=== PATIENT | female | born 1950 | race Caucasian/White ===

== ENCOUNTER 2018-09-22 13:33 | Inpatient (IN) | payer SELFPAY ==
[2018-09-22] MEDS ORDERED: Sodium Chloride 0.9% 1,000 ML IV SCH (14:00)
--- NOTE | 2018-09-22 14:07 | C.PDOC ---
History Of Present Illness 68 year female presents to ED s/p passing out. Daughter reports that they were about to have lunch when she passed out and fell to the ground. Patient's daughter reports that she had mild tremors while unconscious and that her eyes w ere wide open and teeth were clenched. This episode lasted for 1 minute. Patient also experienced urinary incontinence and had an episode of vomiting and watery diarrhea when she woke up. She has a history of diabetes. Patient states that she felt fine the last time she ate at breakfast and reports no symptoms concerning her stomach from earlier today. Patient denies fever, chills and urinary symptoms. Time Seen by Provider: 09/22/18 13:35 Chief Complaint (Nursing): GI Problem History Per: Patient, Family History/Exam Limitations: no limitations Onset/Duration Of Symptoms: Hrs Current Symptoms Are (Timing): Still Present Activity At Onset Of Symptoms: Walking Seizure Or Post-ictal Symptoms: Incontinent Of Urine Past Medical History Reviewed: Historical Data, Nursing Documentation, Vital Signs Vital Signs: Last Vital Signs Temp 98.3 F 09/22/18 13:35 Pulse 105 H 09/22/18 13:35 Resp 20 09/22/18 13:35 BP 157/87 H 09/22/18 13:35 Pulse Ox 98 09/22/18 13:35 - Medical History PMH: Diabetes, Hypercholesterolemia Surgical History: No Surg Hx Family History: States: Unknown Family Hx - Social History Hx Alcohol Use: No Hx Substance Use: No - Immunization History Hx Tetanus Toxoid Vaccination: No Hx Influenza Vaccination: No Hx Pneumococcal Vaccination: No Review Of Systems Constitutional: Negative for: Fever, Chills, Weakness Eyes: Negative for: Vision Change Cardiovascular: Negative for: Chest Pain Respiratory: Negative for: Shortness of Breath Gastrointestinal: Positive for: Vomiting. Negative for: Nausea, Diarrhea Genitourinary: Positive for: Dysuria. Negative for: Incontinence Neurological: Negative for: Weakness, Numbness, Dizziness Physical Exam - Physical Exam Appears: Non-toxic, No Acute Distress, Other (tired appearing) Skin: Normal Color, Warm, Dry Head: Atraumatic, Normacephalic Eye(s): bilateral: PERRL, EOMI Nose: Normal Oral Mucosa: Other (tacky mucous membrane) Lips: Normal Appearing Throat: No Erythema Neck: Normal ROM, Trachea Midline Lymphatic: No Adenopathy Chest: Symmetrical, No Tenderness Cardiovascular: Rhythm Regular, No Murmur Respiratory: Normal Breath Sounds, No Wheezing Gastrointestinal/Abdominal: Soft, No Tenderness, No Mass, No Guarding, No Rebound Back: Normal Inspection, No Decreased ROM Extremity: Normal ROM, No Deformity Neurological/Psych: Oriented x3, Normal Motor, Normal Sensation ED Course And Treatment - Laboratory Results Result Diagrams: 09/22/18 14:19 09/22/18 14:19 O2 Sat by Pulse Oximetry: 98 (RA) - Other Rad CXR X-Ray: Interpreted by Me, Viewed By Me Interpretation: Accession No. : [id number]. Patient Name / ID : DOYLE ROWLAND / [id number]. Exam Date : 09/22/2018 13:59:45 ( Approved ). Study Comment : Sex / Age : F / 68Y. Creator : allen rodriguez. Dictator : Mirian Moreno. Vocational Education Professional : Plastic Finisher : Mirian Moreno. Approver2 : Report Date : 09/22/2018 14:03:39. My Comment : . Date of service: 09/22/2018. HISTORY: weakness. COMPARISON: No prior. FINDINGS: LUNGS: No active pulmonary disease. PLEURA: No significant pleural effusion identified, no pneumothorax apparent. CARDIOVASCULAR: No aortic atherosclerotic calcification present. Mild cardiomegaly. No pulmonary vascular congestion. OSSEOUS STRUCTURES: No significant abnormalities. VISUALIZED UPPER ABDOMEN: Normal. OTHER FINDINGS: None. IMPRESSION: No acute pulmonary pathology. Mild cardiomegaly. - CT Scan/US CTA Chest Other Rad Studies (CT/US): Interpreted By Me, Read By Radiologist CT/US Interpretation: Accession No. : [id number]. Patient Name / ID : DOYLE Russell / [id number]. Exam Date : 09/22/2018 16:27:36 ( Approved ). Study Comment : Sex / Age : F / 68Y. Creator : Aditi Mueller. Dictator : Keisha Alvarado MD. Vocational Education Professional : Plastic Finisher : Keisha Alvarado MD. Approver2 : Report Date : 09/22/2018 16:53:13. My Comment : . This report is currently processing and HAS NOT BEEN OFFICIALLY SIGNED BY THE PHYSICIAN - ESTIMATED TIME OF APPROVAL IS 09/22/2018 17:17. Date of service: 09/22/2018. CTA chest PE protocol. Indication: SYNCOPE elevated trop r/o PE. Technique: Contiguous axial images were obtained through the chest with intravenous contrast enhancement. Sagittal and coronal reconstructions were generated and reviewed. This CT exam was performed using 1 or more of the following dose reduction techniques: Automated exposure control, adjustment of the MAA and/or kV according to patient size, and/or use of iterative reconstruction technique. IV contrast: 100 mL Visipaque 320 IV. . Radiation dose (DLP): 392.02 MGy-cm. Comparison: Chest x-ray performed 09/22/18. Findings: Visualized portions of the inferior thyroid gland demonstrates 11 mm right lower pole hypodense nodule. The mediastinal and hilar vascular structures appear within normal limits. The heart appears within normal limits of size. Coronary artery calcifications. No large central or segmental pulmonary embolus evident. No focal consolidation. No pleural effusion. No pneumothorax. 7 mm right middle lobe pulmonary nodule (series 3, image 97). 4 mm right middle lobe subpleural pulmonary nodule (image 124). Small hiatal hernia/distal esophageal wall thickening. Limited visualized portions of the upper abdomen appear grossly unremarkable. Mild degenerative changes of the spine,. Impression: No large central or segmental pulmonary embolus evident. No focal consolidation. No pleural effusion. No pneumothorax. 7 mm right middle lobe pulmonary nodule. 4 mm right middle lobe subpleural pulmonary nodule. Correlate clinically and recommend [address] follow-up. 11 mm right lower pole hypodense thyroid nodule. Suggest further evaluation with ultrasound. Head CT Other Rad Studies (CT/US): Interpreted By Me, Read By Radiologist CT/US Interpretation: Creator : Aditi Mueller. Dictator : Keisha Alvarado MD. Vocational Education Professional : Plastic Finisher : Keisha Alvarado MD. Approver2 : Report Date : 09/22/2018 16:42:49. My Comment : . Date of service: 09/22/2018. PROCEDURE: CT HEAD WITHOUT CONTRAST. HISTORY: loss of consciousness syncope v seizure. COMPARISON: None available. TECHNIQUE: Axial computed tomography images were obtained through the head/brain without intravenous contrast. Radiation dose: Total exam DLP = 1010.5 mGy-cm. This CT exam was performed using one or more of the following dose reduction techniques: Automated exposure control, adjustment of the mA and/or kV according to patient size, and/or use of iterative reconstruction technique. FINDINGS: Streak artifact from patient's left earring limits evaluation. HEMORRHAGE: No intracranial hemorrhage. BRAIN: No mass effect or edema. Dense intracranial atherosclerosis. Mild scattered white matter hypodensities, which are nonspecific, but often seen with chronic microvascular ischemic disease. Please note that MRI with diffusion imaging is more sensitive in the detection of acute ischemic event. VENTRICLES: No hydrocephalus. CALVARIUM: Unremarkable. PARANASAL SINUSES: Unremarkable as visualized. No significant inflammatory changes. MASTOID AIR CELLS: Unremarkable as visualized. No inflammatory changes. OTHER FINDINGS: None. IMPRESSION: No acute intracranial pathology identified. Critical Care Time - Critical Care Note Total Time (in mins): 45 Documented critical care: time excludes all time spent performing seperately billable procedures. Medical Decision Making Medical Decision Making: Impression: loss of consciousness Differential Diagnosis: syncope,seizure,dehydration, sepsis,gastroenteritis, electrolyte abnormality, and cardiac arrhythmia. Plan: Labs ordered with UA for patient. CXR and Head CT ordered for patient. Patient given IV fluids. EKG Sinus tach with LBBB, no old for comparison. 1500 Labs demonstrated elevated troponin and low magnesium. Magnesium repletion ordered. DW Dr Tovar who came to ER and evaluated pt and advised hospitalization, ICU consult, and PE study. Repeat EKG unchanged. 1600 DW family findings and plan of care. Pt continues to deny any chest pain or shortness of breath [facility] Referral Coordinator who evaluated pt in ER and advised placement in telemetry floor [facility] Hospitalist for admission Disposition - Disposition Disposition: HOSPITALIZED Disposition Time: 16:00 Condition: GUARDED - POA Present On Arrival: Falls Or Trauma - Clinical Impression Clinical Impression: NSTEMI (non-ST elevated myocardial infarction), Hypomagnesemia, Syncope - Scribe Statement The provider has reviewed the documentation as recorded by the Scribe (Melany Glover) All medical record entries made by the Scribe were at my direction and personally dictated by me. I have reviewed the chart and agree that the record accurately reflects my personal performance of the history, physical exam, medical decision making, and the department course for this patient. I have also personally directed, reviewed, and agree with the discharge instructions and disposition. Decision To Admit - . Patient Diagnosis: NSTEMI (non-ST elevated myocardial infarction), Hypomagnesemia, Syncope
[2018-09-22 14:25] LABS: BASO # 0.1 K/uL (0.0-0.2); BASO % 0.5 % (0.0-2.0); EOS % 0.2 % (0.0-4.0); HEMOGLOBIN 11.5 g/dL (11.0-16.0); LYMPH # 0.6 K/uL (1.0-4.3); LYMPH % 4.1 % (20.0-40.0); MEAN CELL VOLUME 84.5 fL (81.0-99.0); MEAN CORPUSCULAR HEMOGLOBIN 28.1 pg (27.0-31.0); MEAN CORPUSCULAR HGB CONC 33.2 g/dL (33.0-37.0); MEAN PLATELET VOLUME 7.8 fL (7.2-11.7); MONO # 0.8 K/uL (0.0-0.8); MONO % 5.8 % (0.0-10.0); NEUT # 12.4 K/uL (1.8-7.0); NEUT % 89.4 % (50.0-75.0); PLATELET COUNT 414 K/uL (130-400); RBC 4.08 Mil/uL (3.80-5.20); RED CELL DISTRIBUTION WIDTH 14.8 % (11.5-14.5); WHITE BLOOD COUNT 13.9 K/uL (4.8-10.8)
[2018-09-22] MEDS: Sodium Chloride 0.9% 1,000 ML IV SCH ×4 (14:26→17:15)
[2018-09-22 14:28] LABS: VENOUS BLOOD GAS BASE EXCESS -0.2 mmol/L (0.0-2.0); VENOUS BLOOD GAS PCO2 50 mmHg (40-60); VENOUS BLOOD GAS PO2 21 mm/Hg (30-55); VENOUS BLOOD PH 7.33 (7.32-7.43)
[2018-09-22] MEDS ORDERED: Sodium Chloride 0.9% 1,000 ML ONE (14:28)
[2018-09-22 14:33] LABS: INR 1.1; PROTHROMBIN TIME 11.9 SECONDS (9.7-12.2)
--- NOTE | 2018-09-22 14:33 | RAD ---
Date of service: 09/22/2018 HISTORY: weakness COMPARISON: No prior. FINDINGS: LUNGS: No active pulmonary disease. PLEURA: No significant pleural effusion identified, no pneumothorax apparent. CARDIOVASCULAR: No aortic atherosclerotic calcification present. Mild cardiomegaly. No pulmonary vascular congestion. OSSEOUS STRUCTURES: No significant abnormalities. VISUALIZED UPPER ABDOMEN: Normal. OTHER FINDINGS: None. IMPRESSION: No acute pulmonary pathology. Mild cardiomegaly.
[2018-09-22 14:47] LABS: ALB/GLOB RATIO 1.5 (1.0-2.1); ALBUMIN 4.3 g/dL (3.5-5.0); ALT/SGPT 23 U/L (9-52); AST/SGOT 36 U/L (14-36); BLOOD UREA NITROGEN 24 mg/dL (7-17); CALCIUM 9.3 mg/dl (8.6-10.4); GFR NON-AFRICAN AMERICAN > 60; LIPASE 291 U/L (23-300)
[2018-09-22 14:50] LABS: BANDS 4 % (0-2); LYMPHOCYTE 5 % (20-40); MONOCYTE 6 % (0-10); NEUTROPHIL 85 % (50-75); PLATELET ESTIMATE SLIGHTLY INCREASED (NORMAL); TOTAL CELLS COUNTED 100
[2018-09-22] MEDS ORDERED: Magnesium Sulfate 2 GM in Sodium Chloride 0.9% 250 ML IV ONE (14:53)
[2018-09-22] MEDS ORDERED: Aspirin 325 mg EC Tablets PO STA (14:58)
[2018-09-22] MEDS ORDERED: Iodixanol 320 MG/ML 100 ML BOTTLE IV ONE (15:33)
[2018-09-22 15:37] LABS: SQUAMOUS EPITHIAL 1 /hpf (0-5)
[2018-09-22] MEDS ORDERED: Aspirin 325 mg EC Tablets PO ONE (15:38)
[2018-09-22 15:40] LABS: URINE BILIRUBIN NEGATIVE (NEGATIVE); URINE BLOOD NEGATIVE (NEGATIVE); URINE CLARITY Clear (Clear); URINE COLOR YELLOW (YELLOW); URINE GLUCOSE (UA) 250 mg/dL (Normal)
[2018-09-22 15:41] LABS: URINE LEUKOCYTE ESTERASE Negative Leu/uL (Negative); URINE PROTEIN NEGATIVE (NEGATIVE); URINE UROBILINOGEN 0.2 mg/dL (0.2-1.0)
[2018-09-22] MEDS ORDERED: Heparin25000 units/250ml 1/2NS 25,000 UNITS/250 ML BAG IV ONE (15:45)
--- NOTE | 2018-09-22 17:00 | CT ---
Date of service: 09/22/2018 PROCEDURE: CT HEAD WITHOUT CONTRAST. HISTORY: loss of consciousness syncope v seizure COMPARISON: None available. TECHNIQUE: Axial computed tomography images were obtained through the head/brain without intravenous contrast. Radiation dose: Total exam DLP = 1010.5 mGy-cm. This CT exam was performed using one or more of the following dose reduction techniques: Automated exposure control, adjustment of the mA and/or kV according to patient size, and/or use of iterative reconstruction technique. FINDINGS: Streak artifact from patient's left earring limits evaluation. HEMORRHAGE: No intracranial hemorrhage. BRAIN: No mass effect or edema. Dense intracranial atherosclerosis. Mild scattered white matter hypodensities, which are nonspecific, but often seen with chronic microvascular ischemic disease. Please note that MRI with diffusion imaging is more sensitive in the detection of acute ischemic event. VENTRICLES: No hydrocephalus. CALVARIUM: Unremarkable. PARANASAL SINUSES: Unremarkable as visualized. No significant inflammatory changes. MASTOID AIR CELLS: Unremarkable as visualized. No inflammatory changes. OTHER FINDINGS: None. IMPRESSION: No acute intracranial pathology identified.
--- NOTE | 2018-09-22 17:15 | CT ---
Date of service: 09/22/2018 CTA chest PE protocol Indication: SYNCOPE elevated trop r/o PE Technique: Contiguous axial images were obtained through the chest with intravenous contrast enhancement. Sagittal and coronal reconstructions were generated and reviewed. This CT exam was performed using 1 or more of the following dose reduction techniques: Automated exposure control, adjustment of the MAA and/or kV according to patient size, and/or use of iterative reconstruction technique. IV contrast: 100 mL Visipaque 320 IV Radiation dose (DLP): 392.02 MGy-cm. Comparison: Chest x-ray performed 09/22/18 Findings: Visualized portions of the inferior thyroid gland demonstrates 11 mm right lower pole hypodense nodule. The mediastinal and hilar vascular structures appear within normal limits. The heart appears within normal limits of size. Coronary artery calcifications. No large central or segmental pulmonary embolus evident. No focal consolidation. No pleural effusion. No pneumothorax. 7 mm right middle lobe pulmonary nodule (series 3, image 97). 4 mm right middle lobe subpleural pulmonary nodule (image 124). Small hiatal hernia/distal esophageal wall thickening. Limited visualized portions of the upper abdomen appear grossly unremarkable. Mild degenerative changes of the spine, Impression: No large central or segmental pulmonary embolus evident. No focal consolidation. No pleural effusion. No pneumothorax. 7 mm right middle lobe pulmonary nodule. 4 mm right middle lobe subpleural pulmonary nodule. Correlate clinically and recommend [address] follow-up. 11 mm right lower pole hypodense thyroid nodule. Suggest further evaluation with ultrasound.
[2018-09-22 17:38] VITALS: BMI 19.0
[2018-09-22] MEDS ORDERED: Heparin 25,000units in D5W 25,000 UNITS/250 ML BAG IV PRN (17:45)
[2018-09-22] MEDS ORDERED: Heparin25000 units/250ml 1/2NS 25,000 UNITS/250 ML BAG IV PRN (18:00)
--- NOTE | 2018-09-22 18:21 | CP.PCM.HP ---
History of Present Illness - History of Present Illness History of Present Illness: History and Physical HPI: Patient is a 68 year old female with history of diabetes who presents for syncopal episode earlier today at 1pm. Daughter in law at bedside states that patient was sitting on the sofa when she fainted, sliding off and falling onto the floor. She lost consciousness for about 2 to 3 seconds after which she was noted to have clenched teeth and incontinent of urine. She immediately vomited once after her syncopal episode. She was reportedly in good health until today except for an 4 episodes of diarrhea 3 days ago. She is typically very active, walks without assistance. She has not had any recent falls. She denies fevers, chills, headache, dizziness, chest pain, palpitations, abdominal pain, nausea, leg swelling or pain. PMH: diabetes PSH: none Home meds: unknown medication for diabetes Allergies: NKDA Social hx: no history of tobacco, alcohol or drug use. Family hx: no history of heart disease Full code Present on Admission - Present on Admission Any Indicators Present on Admission: No Review of Systems - Constitutional Constitutional: absent: Chills, Fever, Frequent Falls, Headache, Weakness - EENT Eyes: absent: Change in Vision Nose/Mouth/Throat: absent: Sore Throat - Cardiovascular Cardiovascular: absent: Chest Pain, Dyspnea - Gastrointestinal Gastrointestinal: Diarrhea, Vomiting. absent: Abdominal Pain - Genitourinary Genitourinary: Urinary Incontinence - Menstruation Menstruation: Post Menopausal - Musculoskeletal Musculoskeletal: absent: Numbness, Stiffness, Tingling - Neurological Neurological: Syncope. absent: Confusion, Disequilibrium, Dizziness, Numbness, Frequent Falls - Psychiatric Psychiatric: absent: Anxiety, Depression Past Patient History - Past Social History Smoking Status: Never Smoked - CARDIAC Hx Hypercholesterolemia: Yes - ENDOCRINE/METABOLIC Hx Diabetes Mellitus Type 2: Yes - PSYCHIATRIC Hx Substance Use: No - ANESTHESIA Hx Anesthesia: No Hx Anesthesia Reactions: No Meds Allergies/Adverse Reactions: Allergies Allergy/AdvReac Type Severity Reaction Status Date / Time No Known Allergies Allergy Unverified 09/22/18 13:41 Physical Exam - Constitutional Appears: No Acute Distress Additional comments: Appears tired - Head Exam Head Exam: ATRAUMATIC, NORMOCEPHALIC - Eye Exam Eye Exam: EOMI, PERRL - ENT Exam ENT Exam: Mucous Membranes Dry - Neck Exam Neck exam: Positive for: Full Rom. Negative for: Tenderness - Respiratory Exam Respiratory Exam: Clear to Auscultation Bilateral, NORMAL BREATHING PATTERN. absent: Rales, Rhonchi, Wheezes, Respiratory Distress, Stridor - Cardiovascular Exam Cardiovascular Exam: +S1, +S2 Additional comments: Murmur - GI/Abdominal Exam GI & Abdominal Exam: Normal Bowel Sounds, Soft. absent: Diminished Bowel Sounds, Distended, Firm, Guarding, Tenderness - Extremities Exam Extremities exam: Positive for: pedal pulses present. Negative for: calf tenderness, pedal edema, tenderness - Neurological Exam Neurological exam: Alert, CN II-XII Intact - Psychiatric Exam Psychiatric exam: Normal Affect, Normal Mood - Skin Skin Exam: Dry, Intact, Warm Results - Vital Signs Recent Vital Signs: Last Vital Signs Temp 99.7 F H 09/22/18 15:33 Pulse 99 H 09/22/18 18:13 Resp 20 09/22/18 18:13 BP 131/71 09/22/18 18:13 Pulse Ox 97 09/22/18 18:13 - Labs Result Diagrams: 09/22/18 14:19 09/22/18 14:19 Labs: Laboratory Results - last 24 hr 09/22/18 09/22/18 09/22/18 13:43 14:19 14:19 WBC 13.9 H RBC 4.08 Hgb 11.5 Hct 34.5 MCV 84.5 MCH 28.1 MCHC 33.2 RDW 14.8 H Plt Count 414 H MPV 7.8 Neut % (Auto) 89.4 H Lymph % (Auto) 4.1 L [place] % (Auto) 5.8 Eos % (Auto) 0.2 Baso % (Auto) 0.5 Neut # (Auto) 12.4 H Lymph # (Auto) 0.6 L [place] # (Auto) 0.8 Eos # (Auto) 0.0 Baso # (Auto) 0.1 Neutrophils % (Manual) 85 H Band Neutrophils % 4 H Lymphocytes % (Manual) 5 L Monocytes % (Manual) 6 Platelet Estimate Slightly increased H RBC Morphology Normal PT 11.9 INR 1.1 APTT 32 pO2 VBG pH VBG pCO2 VBG HCO3 VBG Total CO2 VBG O2 Sat (Calc) VBG Base Excess VBG Potassium Glucose Lactate Sodium Potassium Chloride Carbon Dioxide Anion Gap BUN Creatinine Est GFR ( Amer) Est GFR (Non-Af Amer) POC Glucose (mg/dL) 261 H Random Glucose Calcium Magnesium Total Bilirubin AST ALT Alkaline Phosphatase Troponin I NT-Pro-B Natriuret Pep Total Protein Albumin Globulin Albumin/Globulin Ratio Lipase Venous Blood Potassium Urine Color Urine Clarity Urine pH Ur Specific [place] Urine Protein Urine Glucose (UA) Urine Ketones Urine Blood Urine Nitrate Urine Bilirubin Urine Urobilinogen Ur Leukocyte Esterase Urine WBC (Auto) Urine RBC (Auto) Ur Squamous Epith Cells 09/22/18 09/22/18 09/22/18 14:19 14:24 15:28 WBC RBC Hgb Hct MCV MCH MCHC RDW Plt Count MPV Neut % (Auto) Lymph % (Auto) [place] % (Auto) Eos % (Auto) Baso % (Auto) Neut # (Auto) Lymph # (Auto) [place] # (Auto) Eos # (Auto) Baso # (Auto) Neutrophils % (Manual) Band Neutrophils % Lymphocytes % (Manual) Monocytes % (Manual) Platelet Estimate RBC Morphology PT INR APTT pO2 21 L VBG pH 7.33 VBG pCO2 50 VBG HCO3 22.9 VBG Total CO2 27.9 VBG O2 Sat (Calc) 30.9 L VBG Base Excess -0.2 L VBG Potassium 4.5 Glucose 243 H Lactate 2.0 Sodium 135 137.0 Potassium 4.6 Chloride 97 L 99.0 Carbon Dioxide 27 Anion Gap 16 BUN 24 H Creatinine 0.9 Est GFR ( Amer) > 60 Est GFR (Non-Af Amer) > 60 POC Glucose (mg/dL) Random Glucose 259 H Calcium 9.3 Magnesium 1.0 L* Total Bilirubin 0.4 AST 36 ALT 23 Alkaline Phosphatase 97 Troponin I 0.8590 H* NT-Pro-B Natriuret Pep Total Protein 7.2 Albumin 4.3 Globulin 3.0 Albumin/Globulin Ratio 1.5 Lipase 291 Venous Blood Potassium 4.5 Urine Color Yellow Urine Clarity Clear Urine pH 6.0 Ur Specific [place] 1.015 Urine Protein Negative Urine Glucose (UA) 250 Urine Ketones 15 Urine Blood Negative Urine Nitrate Negative Urine Bilirubin Negative Urine Urobilinogen 0.2 Ur Leukocyte Esterase Negative Urine WBC (Auto) 5 Urine RBC (Auto) < 1 Ur Squamous Epith Cells 1 09/22/18 15:55 WBC RBC Hgb Hct MCV MCH MCHC RDW Plt Count MPV Neut % (Auto) Lymph % (Auto) [place] % (Auto) Eos % (Auto) Baso % (Auto) Neut # (Auto) Lymph # (Auto) [place] # (Auto) Eos # (Auto) Baso # (Auto) Neutrophils % (Manual) Band Neutrophils % Lymphocytes % (Manual) Monocytes % (Manual) Platelet Estimate RBC Morphology PT INR APTT pO2 VBG pH VBG pCO2 VBG HCO3 VBG Total CO2 VBG O2 Sat (Calc) VBG Base Excess VBG Potassium Glucose Lactate Sodium Potassium Chloride Carbon Dioxide Anion Gap BUN Creatinine Est GFR ( Amer) Est GFR (Non-Af Amer) POC Glucose (mg/dL) Random Glucose Calcium Magnesium Total Bilirubin AST ALT Alkaline Phosphatase Troponin I NT-Pro-B Natriuret Pep 940 H Total Protein Albumin Globulin Albumin/Globulin Ratio Lipase Venous Blood Potassium Urine Color Urine Clarity Urine pH Ur Specific [place] Urine Protein Urine Glucose (UA) Urine Ketones Urine Blood Urine Nitrate Urine Bilirubin Urine Urobilinogen Ur Leukocyte Esterase Urine WBC (Auto) Urine RBC (Auto) Ur Squamous Epith Cells Assessment & Plan - Assessment and Plan (Free Text) Assessment: 68 year old female with history of diabetes who presents after syncopal episodes, found to have elevated troponin. Plan: Syncope CT angio: No large central or segmental pulmonary embolus evident.No focal consolidation. No pleural effusion. No pneumothorax. 7 mm right middle lobe pulmonary nodule. 4 mm right middle lobe subpleural pulmonary nodule. Correlate clinically and recommend [address] follow-up. 11 mm right lower pole hypodense thyroid nodule. Suggest further evaluation with ultrasound. CT head: no acute intracranial pathology CXR: negative f/u ECHO f/u blood and urine culture Afebrile white count 13.9 with bands of 4 f/u TSH, T4 UA negative Murmur f/u ECHO NSTEMI Orthostatic vitals Lying 125/70 HR 102 Sitting 118/65 HR 102 Standing 122/72 HR 100 Troponins 0.8590 -> 0.[address] Tovar consulted, help appreciated BNP 940 ASA 81mg PO Coreg 3.125mg PO BID Crestor 20mg PO HS Lipid panel TG 90 Cholesterol 133 LDL 82 HDL 47 History of diabetes Medium dose ISS A1c 6.9 Hypomagnesemia Mag 1.0, repleted continue to monitor Prophylaxis Heparin drip NPO after midnight for cardiac cath tomorrow Case discussed with Dr. Star Meehan, PGY1
--- NOTE | 2018-09-22 19:00 | CP.PCM.CON ---
History of Present Illness - History of Present Illness History of Present Illness: Nolan Johnson PGY1, Cardiology Consult note for Dr Tovar Pt is a 68 yo female with a PMH of DM who presented to the ED after an episode o f LOC with no prodromal event which was witnessed by her daughter. Pt has vomited 1 time before this event, she has also had 2 days of diarrhea during which she had about 4 episodes. Pt reports nausea. Denies chest pain, SOB. Daughter states that she had mild tremors. This episode lasted for 1 minute. Pt experienced urinary incontinence during this event. Past Patient History - Past Social History Smoking Status: Never Smoked - CARDIAC Hx Hypercholesterolemia: Yes - ENDOCRINE/METABOLIC Hx Diabetes Mellitus Type 2: Yes - PSYCHIATRIC Hx Substance Use: No - ANESTHESIA Hx Anesthesia: No Hx Anesthesia Reactions: No Meds Allergies/Adverse Reactions: Allergies Allergy/AdvReac Type Severity Reaction Status Date / Time No Known Allergies Allergy Unverified 09/22/18 13:41 - Medications Medications: Current Medications Aspirin (Aspirin Chewable) 81 mg PO DAILY [facility] Carvedilol (Coreg) 3.125 mg PO BID [facility] Sodium Chloride (Sodium Chloride 0.9%) 1,000 mls @ 1,000 mls/hr IV .Q1H [facility] Last Admin: 09/22/18 17:15 Dose: 1,000 mls/hr Heparin Sodium/Sodium Chloride (Heparin 22200 Units/250ml 1/2 Normal Saline) 25,000 units in 250 mls @ 6.036 mls/hr IV .Q24H PRN; Protocol Last Admin: 09/22/18 18:12 Dose: 12 units/kg/hr, 6.036 mls/hr Insulin Human Regular (Novolin R) 0 unit SC ACHS [facility]; Protocol Rosuvastatin Calcium (Crestor) 20 mg PO HS [facility] Physical Exam - Constitutional Appears: No Acute Distress - Head Exam Head Exam: ATRAUMATIC, NORMOCEPHALIC - Eye Exam Eye Exam: EOMI - ENT Exam ENT Exam: Mucous Membranes Moist - Neck Exam Neck exam: Positive for: Normal Inspection - Respiratory Exam Respiratory Exam: Clear to Auscultation Bilateral, NORMAL BREATHING PATTERN. absent: Respiratory Distress - Cardiovascular Exam Cardiovascular Exam: RRR, +S1, +S2, Systolic Murmur - GI/Abdominal Exam GI & Abdominal Exam: Normal Bowel Sounds, Soft - Extremities Exam Extremities exam: Positive for: normal inspection, pedal pulses present. Negative for: calf tenderness, pedal edema, tenderness - Neurological Exam Neurological exam: Alert, Oriented x3 - Psychiatric Exam Psychiatric exam: Normal Affect, Normal Mood - Skin Skin Exam: Dry, Intact, Warm Results - Vital Signs Recent Vital Signs: Last Vital Signs Temp 98.4 F 09/22/18 18:25 Pulse 96 H 09/22/18 18:25 Resp 20 09/22/18 18:25 BP 134/75 09/22/18 18:25 Pulse Ox 97 09/22/18 18:25 - Labs Result Diagrams: 09/22/18 14:19 09/22/18 14:19 Labs: Laboratory Results - last 24 hr 09/22/18 09/22/18 09/22/18 13:43 14:19 14:19 WBC 13.9 H RBC 4.08 Hgb 11.5 Hct 34.5 MCV 84.5 MCH 28.1 MCHC 33.2 RDW 14.8 H Plt Count 414 H MPV 7.8 Neut % (Auto) 89.4 H Lymph % (Auto) 4.1 L [place] % (Auto) 5.8 Eos % (Auto) 0.2 Baso % (Auto) 0.5 Neut # (Auto) 12.4 H Lymph # (Auto) 0.6 L [place] # (Auto) 0.8 Eos # (Auto) 0.0 Baso # (Auto) 0.1 Neutrophils % (Manual) 85 H Band Neutrophils % 4 H Lymphocytes % (Manual) 5 L Monocytes % (Manual) 6 Platelet Estimate Slightly increased H RBC Morphology Normal PT 11.9 INR 1.1 APTT 32 pO2 VBG pH VBG pCO2 VBG HCO3 VBG Total CO2 VBG O2 Sat (Calc) VBG Base Excess VBG Potassium Glucose Lactate Sodium Potassium Chloride Carbon Dioxide Anion Gap BUN Creatinine Est GFR ( Amer) Est GFR (Non-Af Amer) POC Glucose (mg/dL) 261 H Random Glucose Calcium Magnesium Total Bilirubin AST ALT Alkaline Phosphatase Troponin I NT-Pro-B Natriuret Pep Total Protein Albumin Globulin Albumin/Globulin Ratio Lipase Venous Blood Potassium Urine Color Urine Clarity Urine pH Ur Specific [place] Urine Protein Urine Glucose (UA) Urine Ketones Urine Blood Urine Nitrate Urine Bilirubin Urine Urobilinogen Ur Leukocyte Esterase Urine WBC (Auto) Urine RBC (Auto) Ur Squamous Epith Cells 09/22/18 09/22/18 09/22/18 14:19 14:24 15:28 WBC RBC Hgb Hct MCV MCH MCHC RDW Plt Count MPV Neut % (Auto) Lymph % (Auto) [place] % (Auto) Eos % (Auto) Baso % (Auto) Neut # (Auto) Lymph # (Auto) [place] # (Auto) Eos # (Auto) Baso # (Auto) Neutrophils % (Manual) Band Neutrophils % Lymphocytes % (Manual) Monocytes % (Manual) Platelet Estimate RBC Morphology PT INR APTT pO2 21 L VBG pH 7.33 VBG pCO2 50 VBG HCO3 22.9 VBG Total CO2 27.9 VBG O2 Sat (Calc) 30.9 L VBG Base Excess -0.2 L VBG Potassium 4.5 Glucose 243 H Lactate 2.0 Sodium 135 137.0 Potassium 4.6 Chloride 97 L 99.0 Carbon Dioxide 27 Anion Gap 16 BUN 24 H Creatinine 0.9 Est GFR ( Amer) > 60 Est GFR (Non-Af Amer) > 60 POC Glucose (mg/dL) Random Glucose 259 H Calcium 9.3 Magnesium 1.0 L* Total Bilirubin 0.4 AST 36 ALT 23 Alkaline Phosphatase 97 Troponin I 0.8590 H* NT-Pro-B Natriuret Pep Total Protein 7.2 Albumin 4.3 Globulin 3.0 Albumin/Globulin Ratio 1.5 Lipase 291 Venous Blood Potassium 4.5 Urine Color Yellow Urine Clarity Clear Urine pH 6.0 Ur Specific [place] 1.015 Urine Protein Negative Urine Glucose (UA) 250 Urine Ketones 15 Urine Blood Negative Urine Nitrate Negative Urine Bilirubin Negative Urine Urobilinogen 0.2 Ur Leukocyte Esterase Negative Urine WBC (Auto) 5 Urine RBC (Auto) < 1 Ur Squamous Epith Cells 1 09/22/18 15:55 WBC RBC Hgb Hct MCV MCH MCHC RDW Plt Count MPV Neut % (Auto) Lymph % (Auto) [place] % (Auto) Eos % (Auto) Baso % (Auto) Neut # (Auto) Lymph # (Auto) [place] # (Auto) Eos # (Auto) Baso # (Auto) Neutrophils % (Manual) Band Neutrophils % Lymphocytes % (Manual) Monocytes % (Manual) Platelet Estimate RBC Morphology PT INR APTT pO2 VBG pH VBG pCO2 VBG HCO3 VBG Total CO2 VBG O2 Sat (Calc) VBG Base Excess VBG Potassium Glucose Lactate Sodium Potassium Chloride Carbon Dioxide Anion Gap BUN Creatinine Est GFR ( Amer) Est GFR (Non-Af Amer) POC Glucose (mg/dL) Random Glucose Calcium Magnesium Total Bilirubin AST ALT Alkaline Phosphatase Troponin I NT-Pro-B Natriuret Pep 940 H Total Protein Albumin Globulin Albumin/Globulin Ratio Lipase Venous Blood Potassium Urine Color Urine Clarity Urine pH Ur Specific [place] Urine Protein Urine Glucose (UA) Urine Ketones Urine Blood Urine Nitrate Urine Bilirubin Urine Urobilinogen Ur Leukocyte Esterase Urine WBC (Auto) Urine RBC (Auto) Ur Squamous Epith Cells Assessment & Plan - Assessment and Plan (Free Text) Assessment: Syncope Plan: monitor Mg 1.0 orthostatic vital signs ECHO follow up Troponin 0.8590, continue to trend BNP 940 Pt seen, examined, assessment and plan discussed with Dr Guy Johnson PGY1, Internal Medicine Resident - Date & Time Date: 09/22/18 Time: 19:01
[2018-09-22 19:05] LABS: HDL CHOLESTEROL 47 mg/dL (30-70)
[2018-09-22 19:16] LABS: LDL CHOLESTEROL 82 mg/dL (0-129)
[2018-09-22] MEDS ORDERED: Sodium Chloride 0.9% 500 ML IV SCH (20:30)
[2018-09-22] MEDS: (Novolin R) Insulin Human Regular 100 units/ml vial SC SCH (21:06)
--- NOTE | 2018-09-23 07:00 | CP.PCM.PN ---
Subjective - Date & Time of Evaluation Date of Evaluation: 09/23/18 Time of Evaluation: 06:59 - Subjective Subjective: Progress note for Hospitalist service Patient seen and examined at bedside. She states she has no pain currently. She denies fevers, chills, headache, dizziness, nausea, vomiting, diarrhea, abdominal pain, chest pain, palpitations, leg pain or leg swelling. Objective - Vital Signs/Intake and Output Vital Signs (last 24 hours): Temp Pulse Resp BP Pulse Ox 97.8 F 79 20 122/63 95 09/23/18 00:00 09/23/18 00:00 09/23/18 00:00 09/23/18 00:00 09/23/18 00:00 Intake and Output: 09/22/18 09/23/18 18:59 06:59 Intake Total 144 Balance 144 - Medications Medications: Current Medications Aspirin (Aspirin Chewable) 81 mg PO DAILY [facility] Carvedilol (Coreg) 3.125 mg PO BID [facility] Heparin Sodium/Sodium Chloride (Heparin 82993 Units/250ml 1/2 Normal Saline) 25,000 units in 250 mls @ 6.036 mls/hr IV .Q24H PRN; Protocol Last Admin: 09/22/18 18:12 Dose: 12 units/kg/hr, 6.036 mls/hr Influenza Virus Vaccine (Flucelvax Quad [id number] Syr) 60 mcg IM .ONCE ONE Stop: 09/24/18 10:01 Insulin Human Regular (Novolin R) 0 unit SC [facility]; Protocol Last Admin: 09/22/18 21:06 Dose: Not Given Pneumococcal Polyvalent Vaccine (Pneumovax 23 Vaccine) 0.5 ml IM .ONCE ONE Stop: 09/24/18 10:01 Rosuvastatin Calcium (Crestor) 20 mg PO HS [facility] Last Admin: 09/22/18 21:09 Dose: 20 mg - Labs Labs: 09/22/18 14:19 09/22/18 14: PT 11.9 SECONDS (9.7-12.2) 09/22/18 14: INR 1.1 09/22/18 14: APTT 48 SECONDS (21-34) H D 09/23/18 00:30 - Constitutional Appears: Well, No Acute Distress - Head Exam Head Exam: ATRAUMATIC, NORMOCEPHALIC - Eye Exam Eye Exam: EOMI, PERRL - ENT Exam ENT Exam: Mucous Membranes Moist - Neck Exam Neck Exam: Full ROM - Respiratory Exam Respiratory Exam: Clear to Ausculation Bilateral, NORMAL BREATHING PATTERN. absent: Rales, Rhonchi, Wheezes, Respiratory Distress, Stridor - Cardiovascular Exam Cardiovascular Exam: +S1, +S2, Murmur - GI/Abdominal Exam GI & Abdominal Exam: Soft, Normal Bowel Sounds. absent: Tenderness - Extremities Exam Extremities Exam: absent: Calf Tenderness, Pedal Edema - Neurological Exam Neurological Exam: Alert, Awake, Oriented x3 - Psychiatric Exam Psychiatric exam: Normal Affect, Normal Mood - Skin Skin Exam: Dry, Intact, Warm Assessment and Plan - Assessment and Plan (Free Text) Assessment: 68 year old female with history of diabetes who presents after syncopal episodes, found to have elevated troponin. Plan: Syncope CT angio: No large central or segmental pulmonary embolus evident.No focal consolidation. No pleural effusion. No pneumothorax. 7 mm right middle lobe pu lmonary nodule. 4 mm right middle lobe subpleural pulmonary nodule. Correlate clinically and recommend [address] follow-up. 11 mm right lower pole hypodense thyroid nodule. Suggest further evaluation with ultrasound. CT head: no acute intracranial pathology CXR: negative f/u ECHO Urine culture no growth f/u blood culture Afebrile white count 6.3 TSH 2.80 T4 1.42 UA negative Murmur f/u ECHO NSTEMI Orthostatic vitals Lying 125/70 HR 102 Sitting 118/65 HR 102 Standing 122/72 HR 100 Troponins 0.8590 -> 0.7810 -> 1.[address] Tovar consulted, help appreciated BNP 940 ASA 81mg PO Coreg 3.125mg PO BID Crestor 20mg PO HS Lipid panel TG 90 Cholesterol 133 LDL 82 HDL 47 Due to cardiac cath today. f/u ECHO report On Telemetry History of diabetes Medium dose ISS A1c 6.9 Hypomagnesemia, improved Mag 1.6 from 1.0 yesterday continue to monitor Prophylaxis Heparin drip Due cardiac cath today Post cardiac cath check tonight. Case discussed with Dr. Star Meehan, PGY1
[2018-09-23 07:17] LABS: BASO % 0.5 % (0.0-2.0); EOS % 0.7 % (0.0-4.0); HEMOGLOBIN 10.9 g/dL (11.0-16.0); LYMPH # 0.9 K/uL (1.0-4.3); MEAN CELL VOLUME 83.2 fL (81.0-99.0); MEAN CORPUSCULAR HEMOGLOBIN 27.8 pg (27.0-31.0); MEAN CORPUSCULAR HGB CONC 33.4 g/dL (33.0-37.0); MEAN PLATELET VOLUME 8.3 fL (7.2-11.7); MONO # 0.5 K/uL (0.0-0.8); MONO % 8.4 % (0.0-10.0); NEUT # 4.8 K/uL (1.8-7.0); NEUT % 76.4 % (50.0-75.0); RBC 3.93 Mil/uL (3.80-5.20); RED CELL DISTRIBUTION WIDTH 14.7 % (11.5-14.5)
[2018-09-23 07:33] LABS: ALB/GLOB RATIO 1.4 (1.0-2.1); ALBUMIN 3.7 g/dL (3.5-5.0); ALT/SGPT 29 U/L (9-52); AST/SGOT 24 U/L (14-36); BLOOD UREA NITROGEN 20 mg/dL (7-17); CALCIUM 8.8 mg/dl (8.6-10.4); GFR NON-AFRICAN AMERICAN > 60; WHITE BLOOD COUNT 6.3 K/uL (4.8-10.8)
[2018-09-23] MEDS: (Novolin R) Insulin Human Regular 100 units/ml vial SC SCH ×4 (08:09→22:00)
[2018-09-23] MEDS ORDERED: Heparin25000 units/250ml 1/2NS 25,000 UNITS/250 ML BAG IV PRN ×2 (08:15→22:00)
[2018-09-23] MEDS ORDERED: Iodixanol 320 MG/ML 100 ML BOTTLE IV ONE (15:50)
[2018-09-23] MEDS ORDERED: Verapamil 2 ML ONE (15:51)
[2018-09-23] MEDS ORDERED: Midazolam 2 MG/2 ML VIAL ONE (17:20)
--- NOTE | 2018-09-23 18:30 | CP.PCM.PN ---
Subjective - Date & Time of Evaluation Date of Evaluation: 09/23/18 Time of Evaluation: 07:00 - Subjective Subjective: Pt seen and examined this morning. No new complaints at this time. Objective - Vital Signs/Intake and Output Vital Signs (last 24 hours): Temp Pulse Resp BP Pulse Ox 97.8 F 74 20 124/67 96 09/23/18 07:00 09/23/18 11:15 09/23/18 07:00 09/23/18 10:16 09/23/18 07:00 Intake and Output: 09/23/18 09/23/18 06:59 18:59 Intake Total 144 56 Balance 144 56 - Medications Medications: Current Medications Aspirin (Aspirin Chewable) 81 mg PO DAILY [facility] Last Admin: 09/23/18 10:17 Dose: 81 mg Carvedilol (Coreg) 3.125 mg PO BID [facility] Last Admin: 09/23/18 10:17 Dose: 3.125 mg Heparin Sodium/Sodium Chloride (Heparin 55626 Units/250ml 1/2 Normal Saline) 25,000 units in 250 mls @ 7.042 mls/hr IV .Q24H PRN; Protocol Last Admin: 09/23/18 08:19 Dose: 14 units/kg/hr, 7.042 mls/hr Influenza Virus Vaccine (Flucelvax Quad [id number] Syr) 60 mcg IM .ONCE ONE Stop: 09/24/18 10:01 Insulin Human Regular (Novolin R) 0 unit SC [facility]; Protocol Last Admin: 09/23/18 12:47 Dose: Not Given Pneumococcal Polyvalent Vaccine (Pneumovax 23 Vaccine) 0.5 ml IM .ONCE ONE Stop: 09/24/18 10:01 Rosuvastatin Calcium (Crestor) 20 mg PO [facility] Last Admin: 09/22/18 21:09 Dose: 20 mg - Labs Labs: 09/23/18 07:03 09/23/18 07:03 PT 11.9 SECONDS (9.7-12.2) 09/22/18 14:19 INR 1.1 09/22/18 14:19 APTT 71 SECONDS (21-34) H D 09/23/18 13:21 - Constitutional Appears: No Acute Distress - Head Exam Head Exam: ATRAUMATIC, NORMOCEPHALIC - Eye Exam Eye Exam: EOMI - ENT Exam ENT Exam: Mucous Membranes Moist - Neck Exam Neck Exam: Full ROM - Respiratory Exam Respiratory Exam: Clear to Ausculation Bilateral, NORMAL BREATHING PATTERN. absent: Accessory Muscle Use - Cardiovascular Exam Cardiovascular Exam: RRR, +S1, +S2. absent: Diastolic murmur, Murmur - GI/Abdominal Exam GI & Abdominal Exam: Soft, Normal Bowel Sounds. absent: Tenderness - Extremities Exam Extremities Exam: Full ROM. absent: Pedal Edema, Tenderness - Neurological Exam Neurological Exam: Alert, Awake, Oriented x3 - Psychiatric Exam Psychiatric exam: Normal Affect, Normal Mood Assessment and Plan - Assessment and Plan (Free Text) Assessment: Syncope NSTEMI Positive Troponins ACS Plan: Troponin 0.8590, 0.7810, 1.0400 BNP 940 HA1C 6.9 ECHO 09/22/18 completed, follow up read Will take pt to [facility] for PCI tomorrow of LAD and Circ at 1pm medications ASA Coreg Heparin 25,000 Crestor Pt seen, examined, assessment and plan discussed with Dr Guy Johnson PGY1, Internal Medicine Resident
[2018-09-23 19:59] LABS: BASO % 0.6 % (0.0-2.0); EOS # 0.1 K/uL (0.0-0.7); EOS % 1.3 % (0.0-4.0); HEMOGLOBIN 11.7 g/dL (11.0-16.0); LYMPH # 1.2 K/uL (1.0-4.3); LYMPH % 20.3 % (20.0-40.0); MEAN CELL VOLUME 84.2 fL (81.0-99.0); MEAN CORPUSCULAR HEMOGLOBIN 27.1 pg (27.0-31.0); MEAN CORPUSCULAR HGB CONC 32.2 g/dL (33.0-37.0); MEAN PLATELET VOLUME 7.8 fL (7.2-11.7); MONO # 0.5 K/uL (0.0-0.8); MONO % 9.3 % (0.0-10.0); NEUT # 4.1 K/uL (1.8-7.0); NEUT % 68.5 % (50.0-75.0); RBC 4.32 Mil/uL (3.80-5.20); RED CELL DISTRIBUTION WIDTH 15.1 % (11.5-14.5); WHITE BLOOD COUNT 5.9 K/uL (4.8-10.8)
[2018-09-23 20:23] LABS: ALB/GLOB RATIO 1.4 (1.0-2.1); ALT/SGPT 20 U/L (9-52); AST/SGOT 22 U/L (14-36); BLOOD UREA NITROGEN 19 mg/dL (7-17); CALCIUM 9.2 mg/dl (8.6-10.4); GFR NON-AFRICAN AMERICAN > 60
--- NOTE | 2018-09-23 23:42 | CARD ---
APPROVED REPORT Date of service: 09/23/2018 EXAM: Two-dimensional and M-mode echocardiogram with Doppler and color Doppler. INDICATION Syncope RISK FACTORS Hyperlipidemia Diabetes 2D DIMENSIONS IVSd1.1 (0.7-1.1cm)LVDd3.9 (3.9-5.9cm) PWd0.9 (0.7-1.1cm)LA Mjikzd94 (18-58mL) LVDs2.9 (2.5-4.0cm)FS (%) 25.3 % LVEF (%)50.6 (>50%)LVEF (Fountain's)62.97 % IVC0.00 cm M-Mode DIMENSIONS Left Atrium (MM)3.54 (2.5-4.0cm)IVSd1.04 (0.7-1.1cm) Aortic Root3.21 (2.2-3.7cm)LVDd5.25 (4.0-5.6cm) Aortic Cusp Exc.1.85 (1.5-2.0cm)PWd1.15 (0.7-1.1cm) FS (%) 42 %LVDs3.06 (2.0-3.8cm) LVEF (%)62 (>50%) Mitral Valve MV E Rewsebxr93.8cm/sMV A Cslyzwdl025.2cm/sE/A ratio0.7 TDI Lateral E' Peak V6.80cm/sMedial E' Peak V4.74cm/sE/Lateral E'10.9 E/Medial E'15.6 LEFT VENTRICLE The left ventricle is normal size. There is normal left ventricular wall thickness. The left ventricular function is normal. The left ventricular ejection fraction is within the normal range. There is normal LV segmental wall motion. Transmitral Doppler flow pattern is abnormal. RIGHT VENTRICLE The right ventricle is normal size. ATRIA The left atrium size is normal. The right atrium size is normal. AORTIC VALVE The aortic valve is normal in structure. MITRAL VALVE Mitral regurgitation is trace to mild. TRICUSPID VALVE There is mild tricuspid regurgitation. <Conclusion> Normal LV systolic function. Diastolic dysfunction. Trace MR. Mild TR. Normalchambersize.
--- NOTE | 2018-09-23 23:51 | CP.PCM.PCO ---
Addendum Addendum: 09/23/18 23:50 Patient seen and examined post-cath. R groin entry site with clean dry bandage- no active bleeding. Patient denies pain, including chest pain or flank/back pain. She is able to move all limbs. Pulses present in all extremities.
--- NOTE | 2018-09-24 02:26 | CARDCATH ---
PROCEDURE DATE: 09/23/2018 INDICATIONS: Ms. Case is a 68-year-old female who presented with an episode of syncope, was ruled in for ACS with positive troponin and therefore was brought to the warehouse lab[facility] for evaluation and treatment of non-STEMI and episode of syncope. PROCEDURES PERFORMED: Left heart catheterization with selective left and right coronary angiograms, left ventriculogram, 6-Hebrew right radial arterial access, and wrist band for hemostasis. ANGIOGRAPHIC FINDINGS: The left main is a large-sized vessel, bifurcates into left anterior descending and left circumflex coronary artery. The left circumflex runs in AV groove, gives off medium-sized obtuse marginal branch and continues with a large-sized obtuse marginal branch. Distal left circumflex has 85% stenosis, codominant circulation. Left anterior descending is a large-sized vessel, tapers into medium-sized vessel and the mid segment has 99% subtotal occlusion at the bifurcation of the diagonal with a medium-sized diagonal branch, free of any obstructive disease. RCA large-sized vessel has a mid nonobstructive 40% stenosis. Left ventricular ejection fraction is about 55% to 60%. EDP was about 18. IMPRESSION: Two-vessel coronary artery disease, normal ejection fraction. RECOMMENDATIONS: The patient is to undergo staged intervention of the focal LAD and circumflex lesion at [facility] tomorrow. Continue the patient on dual antiplatelet therapy. Guideline directed therapy for CAD. Cricket Tovar MD
[2018-09-24] MEDS ORDERED: Heparin25000 units/250ml 1/2NS 25,000 UNITS/250 ML BAG IV PRN (02:45)
--- NOTE | 2018-09-24 07:21 | CP.PCM.PN ---
<Cori Meehan - Last Filed: 09/24/18 16:35> Subjective - Date & Time of Evaluation Date of Evaluation: 09/24/18 Time of Evaluation: 07:21 - Subjective Subjective: Progress Note for Hospitalist service Patient seen and examined at bedside. She states she has no pain currently. She was made aware that she is going to [place] for PCI. Daughter in law Eden was also made aware. Objective - Vital Signs/Intake and Output Vital Signs (last 24 hours): Temp Pulse Resp BP Pulse Ox 97.8 F 94 H 20 115/56 L 96 09/23/18 23:00 09/23/18 23:00 09/23/18 23:00 09/23/18 23:00 09/23/18 23:00 - Medications Medications: Current Medications Aspirin (Aspirin Chewable) 81 mg PO DAILY [facility] Last Admin: 09/23/18 10:17 Dose: 81 mg Carvedilol (Coreg) 3.125 mg PO BID [facility] Last Admin: 09/23/18 18:00 Dose: Not Given Heparin Sodium/Sodium Chloride (Heparin 23805 Units/250ml 1/2 Normal Saline) 25,000 units in 250 mls @ 8.048 mls/hr IV .Q24H PRN; Protocol Last Admin: 09/24/18 03:05 Dose: 16 units/kg/hr, 8.048 mls/hr Influenza Virus Vaccine (Flucelvax Quad [id number] Syr) 60 mcg IM .ONCE ONE Stop: 09/24/18 10:01 Insulin Human Regular (Novolin R) 0 unit SC [facility]; Protocol Last Admin: 09/23/18 22:00 Dose: Not Given Pneumococcal Polyvalent Vaccine (Pneumovax 23 Vaccine) 0.5 ml IM .ONCE ONE Stop: 09/24/18 10:01 Rosuvastatin Calcium (Crestor) 20 mg PO HS [facility] Last Admin: 09/23/18 21:37 Dose: 20 mg - Labs Labs: 09/23/18 19:54 09/23/18 19:54 PT 11.9 SECONDS (9.7-12.2) 09/22/18 14:19 INR 1.1 09/22/18 14:19 APTT 97 SECONDS (21-34) H D 09/24/18 02:20 - Constitutional Appears: Well, No Acute Distress - Head Exam Head Exam: ATRAUMATIC, NORMOCEPHALIC Additional comments: Bruise around left eye - Eye Exam Eye Exam: EOMI, PERRL - ENT Exam ENT Exam: Mucous Membranes Moist - Neck Exam Neck Exam: Full ROM - Respiratory Exam Respiratory Exam: Clear to Ausculation Bilateral, NORMAL BREATHING PATTERN - Cardiovascular Exam Cardiovascular Exam: REGULAR RHYTHM, +S1, +S2 - GI/Abdominal Exam GI & Abdominal Exam: Soft, Normal Bowel Sounds. absent: Tenderness - Extremities Exam Extremities Exam: absent: Calf Tenderness, Pedal Edema - Neurological Exam Neurological Exam: Alert, Awake, Oriented x3 - Psychiatric Exam Psychiatric exam: Normal Affect, Normal Mood - Skin Skin Exam: Dry, Intact, Warm Assessment and Plan - Assessment and Plan (Free Text) Assessment: 68 year old female with history of diabetes who presents after syncopal episodes, found to have elevated troponin. Plan: Syncope CT angio: No large central or segmental pulmonary embolus evident.No focal consolidation. No pleural effusion. No pneumothorax. 7 mm right middle lobe pulmonary nodule. 4 mm right middle lobe subpleural pulmonary nodule. Correlate clinically and recommend [address] follow-up. 11 mm right lower pole hypodense thyroid nodule. Suggest further evaluation with ultrasound. CT head: no acute intracranial pathology CXR: negative ECHO normal LV systolic function. Diastolic dysfunction. Trace MR. Mild MR. Normal chamber size Urine culture no growth Blood culture no growth after 48 hours. Afebrile white count 6.9 TSH 2.80 T4 1.42 UA negative Murmur ECHO normal LV systolic function. Diastolic dysfunction. Trace MR. Mild MR. Normal chamber size. NSTEMI Orthostatic vitals Lying 125/70 HR 102 Sitting 118/65 HR 102 Standing 122/72 HR 100 Troponins 0.8590 -> 0.7810 -> 1.[address] Tovar consulted, help appreciated BNP 940 ASA 81mg PO Coreg 3.125mg PO BID Crestor 20mg PO HS Lipid panel TG 90 Cholesterol 133 LDL 82 HDL 47 Cardiac cath: LAD mid segment 99% subtotal occlusion. Distal Left circumflex 85% stenosis with codominant circulation. RCA 40% stenosis. ECHO normal LV systolic function. Diastolic dysfunction. Trace MR. Mild MR. Normal chamber size On Telemetry History of diabetes Medium dose ISS A1c 6.9 Hypomagnesemia, improved Mag 1.6 from 1.0 yesterday continue to monitor Prophylaxis Heparin drip <Baldev Dennison - Last Filed: 09/24/18 17:40> Objective - Vital Signs/Intake and Output Vital Signs (last 24 hours): Temp Pulse Resp BP Pulse Ox 97.9 F 69 20 123/70 95 09/24/18 08:00 09/24/18 09:51 09/24/18 08:00 09/24/18 09:51 09/24/18 08:00 - Medications Medications: Current Medications Aspirin (Aspirin Chewable) 81 mg PO DAILY [facility] Last Admin: 09/24/18 09:49 Dose: 81 mg Carvedilol (Coreg) 3.125 mg PO BID [facility] Last Admin: 09/24/18 09:49 Dose: 3.125 mg Heparin Sodium/Sodium Chloride (Heparin 14187 Units/250ml 1/2 Normal Saline) 25,000 units in 250 mls @ 8.048 mls/hr IV .Q24H PRN; Protocol Last Admin: 09/24/18 03:05 Dose: 16 units/kg/hr, 8.048 mls/hr Sodium Chloride (Sodium Chloride 0.9%) 1,000 mls @ 100 mls/hr IV .Q10H [facility] Sodium Chloride (Sodium Chloride 0.9%) 1,000 mls @ 50 mls/hr IV .Q20H [facility] Insulin Human Regular (Novolin R) 0 unit SC ACHS [facility]; Protocol Last Admin: 09/24/18 11:56 Dose: Not Given Lisinopril (Zestril) 2.5 mg PO DAILY [facility] Rosuvastatin Calcium (Crestor) 20 mg PO HS [facility] Last Admin: 09/23/18 21:37 Dose: 20 mg - Labs Labs: 09/24/18 07:48 09/24/18 07:48 PT 11.9 SECONDS (9.7-12.2) 09/22/18 14:19 INR 1.1 09/22/18 14: APTT 77 SECONDS (21-34) H D 09/24/18 08:04 Attending/Attestation - Attestation I have personally seen and examined this patient.: Yes I have fully participated in the care of the patient.: Yes I have reviewed all pertinent clinical information, including history, physical exam and plan: Yes Notes (Text): Patient with NSTEMI started on a heparin gtt [place] [facility] [place] Will continue with medical management on patient's return
[2018-09-24] MEDS: (Novolin R) Insulin Human Regular 100 units/ml vial SC SCH ×4 (07:39→23:09)
[2018-09-24 07:55] LABS: BASO % 0.4 % (0.0-2.0); EOS # 0.1 K/uL (0.0-0.7); EOS % 1.2 % (0.0-4.0); HEMOGLOBIN 11.3 g/dL (11.0-16.0); LYMPH # 0.8 K/uL (1.0-4.3); LYMPH % 11.8 % (20.0-40.0); MEAN CELL VOLUME 84.3 fL (81.0-99.0); MEAN CORPUSCULAR HEMOGLOBIN 27.3 pg (27.0-31.0); MEAN CORPUSCULAR HGB CONC 32.3 g/dL (33.0-37.0); MEAN PLATELET VOLUME 8.4 fL (7.2-11.7); MONO # 0.7 K/uL (0.0-0.8); MONO % 10.4 % (0.0-10.0); NEUT # 5.2 K/uL (1.8-7.0); NEUT % 76.2 % (50.0-75.0); RBC 4.16 Mil/uL (3.80-5.20); RED CELL DISTRIBUTION WIDTH 14.7 % (11.5-14.5); WHITE BLOOD COUNT 6.9 K/uL (4.8-10.8)
[2018-09-24 08:13] LABS: ALB/GLOB RATIO 1.3 (1.0-2.1); ALBUMIN 3.6 g/dL (3.5-5.0); ALT/SGPT 21 U/L (9-52); AST/SGOT 20 U/L (14-36); BLOOD UREA NITROGEN 22 mg/dL (7-17); CALCIUM 8.8 mg/dl (8.6-10.4); GFR NON-AFRICAN AMERICAN > 60
[2018-09-24] MEDS ORDERED: Pneumococcal 23-Valent Vaccine IM ONE (10:00)
[2018-09-24] MEDS ORDERED: Influenza Vaccine 60 mcg/0.5 mL SYR (4YR UP) IM ONE (10:00)
--- NOTE | 2018-09-24 12:44 | CP.PCM.PN ---
Subjective - Date & Time of Evaluation Date of Evaluation: 09/24/18 Time of Evaluation: 06:50 - Subjective Subjective: Pt seen and examined this morning at bedside, denies chest pain, SOB or nausea/ vomiting. Objective - Vital Signs/Intake and Output Vital Signs (last 24 hours): Temp Pulse Resp BP Pulse Ox 97.9 F 69 20 123/70 95 09/24/18 08:00 09/24/18 09:51 09/24/18 08:00 09/24/18 09:51 09/24/18 08:00 - Medications Medications: Current Medications Aspirin (Aspirin Chewable) 81 mg PO DAILY [facility] Last Admin: 09/24/18 09:49 Dose: 81 mg Carvedilol (Coreg) 3.125 mg PO BID [facility] Last Admin: 09/24/18 09:49 Dose: 3.125 mg Heparin Sodium/Sodium Chloride (Heparin 14902 Units/250ml 1/2 Normal Saline) 25,000 units in 250 mls @ 8.048 mls/hr IV .Q24H PRN; Protocol Last Admin: 09/24/18 03:05 Dose: 16 units/kg/hr, 8.048 mls/hr Insulin Human Regular (Novolin R) 0 unit SC ACHS [facility]; Protocol Last Admin: 09/24/18 11:56 Dose: Not Given Rosuvastatin Calcium (Crestor) 20 mg PO HS [facility] Last Admin: 09/23/18 21:37 Dose: 20 mg - Labs Labs: 09/24/18 07:48 09/24/18 07:48 PT 11.9 SECONDS (9.7-12.2) 09/22/18 14: INR 1.1 09/22/18 14:19 APTT 77 SECONDS (21-34) H D 09/24/18 08:04 - Constitutional Appears: No Acute Distress - Head Exam Head Exam: ATRAUMATIC, NORMOCEPHALIC - Eye Exam Eye Exam: EOMI - ENT Exam ENT Exam: Mucous Membranes Moist - Neck Exam Neck Exam: Full ROM - Respiratory Exam Respiratory Exam: Clear to Ausculation Bilateral, NORMAL BREATHING PATTERN - Cardiovascular Exam Cardiovascular Exam: RRR, +S1, +S2. absent: Diastolic murmur, Murmur - GI/Abdominal Exam GI & Abdominal Exam: Soft, Normal Bowel Sounds. absent: Tenderness - Extremities Exam Extremities Exam: Full ROM. absent: Calf Tenderness, Pedal Edema - Neurological Exam Neurological Exam: Alert, Awake, Oriented x3 - Psychiatric Exam Psychiatric exam: Normal Affect, Normal Mood - Skin Skin Exam: Dry, Normal Color, Warm Assessment and Plan - Assessment and Plan (Free Text) Assessment: Syncope NSTEMI Positive Troponins ACS Plan: Troponin (09/22/18) 0.8590, 0.7810, 1.0400 BNP 940 HA1C 6.9 ECHO 09/22/18 normal LV systolic dysfunction [facility] for PCI of LAD and Circ today Medications ASA Coreg Heparin 25,000 Allison Tipton Pt seen, examined, assessment and plan discussed with Dr Guy Johnson PGY1, Internal Medicine Resident
[2018-09-24] MEDS ORDERED: Metoprolol Succinate 25 mg XL Tab PO SCH (14:45)
[2018-09-24] MEDS ORDERED: Sodium Chloride 0.9% 1,000 ML IV SCH ×2 (15:00→22:00)
--- NOTE | 2018-09-24 20:14 | CARD ---
APPROVED REPORT Date of service: 09/23/2018 EKG Measurement Heart [id number] <Conclusion> Normal sinus rhythm Left axis deviation Abnormal ECG
--- NOTE | 2018-09-24 22:04 | CARD ---
APPROVED REPORT Date of service: 09/22/2018 EKG Measurement Heart [id number] [place] [id number] <Conclusion> Sinus tachycardia Inferior infarct, age undetermined Anterior infarct, age undetermined T wave abnormality, consider lateral ischemia Abnormal ECG
--- NOTE | 2018-09-24 22:05 | CARD ---
APPROVED REPORT Date of service: 09/22/2018 EKG Measurement Heart [id number] [place] 176P62 [id number] <Conclusion> Sinus tachycardia Inferior infarct, age undetermined Anterolateral infarct, age undetermined Abnormal ECG
--- NOTE | 2018-09-25 07:07 | CP.PCM.PN ---
Subjective - Date & Time of Evaluation Date of Evaluation: 09/25/18 Time of Evaluation: 07:07 - Subjective Subjective: Progress Note for Hospitalist service (Dr. Dennison) Patient seen and examined at bedside. She is status post PCI at [facility] for LAD and Left circumflex. She denies chest pain, palpitations, fever, headache, abdominal pain, nausea, vomiting, diarrhea, leg pain. Right groin was bandaged, but no noted hematoma. Objective - Vital Signs/Intake and Output Vital Signs (last 24 hours): Temp Pulse Resp BP Pulse Ox 98 F 72 18 115/60 95 09/24/18 23:41 09/24/18 23:41 09/24/18 23:41 09/24/18 23:41 09/24/18 23:41 Intake and Output: 09/25/18 09/25/18 06:59 18:59 Intake Total 400 Balance 400 - Medications Medications: Current Medications Aspirin (Aspirin Chewable) 81 mg PO DAILY [facility] Last Admin: 09/24/18 09:49 Dose: 81 mg Carvedilol (Coreg) 3.125 mg PO BID [facility] Last Admin: 09/24/18 19:57 Dose: Not Given Heparin Sodium/Sodium Chloride (Heparin 61393 Units/250ml 1/2 Normal Saline) 25,000 units in 250 mls @ 8.048 mls/hr IV .Q24H PRN; Protocol Last Admin: 09/24/18 03:05 Dose: 16 units/kg/hr, 8.048 mls/hr Sodium Chloride (Sodium Chloride 0.9%) 1,000 mls @ 100 mls/hr IV .Q10H [facility] Sodium Chloride (Sodium Chloride 0.9%) 1,000 mls @ 50 mls/hr IV .Q20H [facility] Last Admin: 09/24/18 22:11 Dose: 50 mls/hr Insulin Human Regular (Novolin R) 0 unit SC ACHS [facility]; Protocol Last Admin: 09/24/18 23:09 Dose: Not Given Lisinopril (Zestril) 2.5 mg PO DAILY [facility] Rosuvastatin Calcium (Crestor) 20 mg PO HS [facility] Last Admin: 09/24/18 22:11 Dose: 20 mg - Labs Labs: 09/24/18 07:48 09/24/18 07:48 PT 11.9 SECONDS (9.7-12.2) 09/22/18 14:19 INR 1.1 09/22/18 14:19 APTT 77 SECONDS (21-34) H D 09/24/18 08:04 - Constitutional Appears: Well, No Acute Distress - Head Exam Head Exam: ATRAUMATIC, NORMOCEPHALIC - Eye Exam Eye Exam: EOMI, PERRL - ENT Exam ENT Exam: Mucous Membranes Moist - Neck Exam Neck Exam: Full ROM - Respiratory Exam Respiratory Exam: Clear to Ausculation Bilateral, NORMAL BREATHING PATTERN. absent: Rales, Rhonchi, Wheezes - Cardiovascular Exam Cardiovascular Exam: REGULAR RHYTHM, +S1, +S2. absent: Gallop, Rubs, Murmur - GI/Abdominal Exam GI & Abdominal Exam: Soft, Normal Bowel Sounds. absent: Tenderness - Extremities Exam Extremities Exam: absent: Calf Tenderness, Pedal Edema - Neurological Exam Neurological Exam: Alert, Awake, Oriented x3 - Psychiatric Exam Psychiatric exam: Normal Affect, Normal Mood - Skin Skin Exam: Dry, Intact, Normal Color Assessment and Plan - Assessment and Plan (Free Text) Assessment: 68 year old female with history of diabetes who presents after syncopal episodes, found to have NSTEMI. Status post LAD and RCA stent placement on 09/24/18. Plan: NSTEMI Status post PCI of LAD and Left Circumflex 09/24/18 Orthostatic vitals Lying 125/70 HR 102 Sitting 118/65 HR 102 Standing 122/72 HR 100 Troponins 0.8590 -> 0.7810 -> 1.[address] Tovar consulted, help appreciated BNP 940 ASA 81mg PO Coreg 3.125mg PO BID Crestor 20mg PO HS Lisinopril 2.5mg PO daily Brilinta 90mg PO BID Lipid panel TG 90 Cholesterol 133 LDL 82 HDL 47 Cardiac cath: LAD mid segment 99% subtotal occlusion. Distal Left circumflex 85% stenosis with codominant circulation. RCA 40% stenosis. ECHO normal LV systolic function. Diastolic dysfunction. Trace MR. Mild MR. Normal chamber size On Telemetry Syncope CT angio: No large central or segmental pulmonary embolus evident.No focal consolidation. No pleural effusion. No pneumothorax. 7 mm right middle lobe pu lmonary nodule. 4 mm right middle lobe subpleural pulmonary nodule. Correlate clinically and recommend [address] follow-up. 11 mm right lower pole hypodense thyroid nodule. Suggest further evaluation with ultrasound. CT head: no acute intracranial pathology CXR: negative ECHO normal LV systolic function. Diastolic dysfunction. Trace MR. Mild MR. Normal chamber size Urine culture no growth Blood culture no growth after 48 hours. Afebrile white count 6.9 TSH 2.80 T4 1.42 UA negative Murmur ECHO normal LV systolic function. Diastolic dysfunction. Trace MR. Mild MR. Normal chamber size. History of diabetes Medium dose ISS A1c 6.9 Hypomagnesemia Mag 1.2, repleted. continue to monitor Prophylaxis ASA, Brilinta Heart healthy diet Case discussed with Dr. Jesi Meehan, PGY1
[2018-09-25 07:43] VITALS: RESP 20; O2SAT 97
[2018-09-25 07:47] LABS: BASO % 0.4 % (0.0-2.0); EOS # 0.1 K/uL (0.0-0.7); EOS % 1.1 % (0.0-4.0); HEMOGLOBIN 10.5 g/dL (11.0-16.0); LYMPH # 0.9 K/uL (1.0-4.3); LYMPH % 13.7 % (20.0-40.0); MEAN CELL VOLUME 83.7 fL (81.0-99.0); MEAN CORPUSCULAR HEMOGLOBIN 27.7 pg (27.0-31.0); MEAN PLATELET VOLUME 8.4 fL (7.2-11.7); MONO # 0.7 K/uL (0.0-0.8); MONO % 10.2 % (0.0-10.0); NEUT # 4.9 K/uL (1.8-7.0); NEUT % 74.6 % (50.0-75.0); RBC 3.78 Mil/uL (3.80-5.20); RED CELL DISTRIBUTION WIDTH 14.4 % (11.5-14.5); WHITE BLOOD COUNT 6.6 K/uL (4.8-10.8)
[2018-09-25 08:03] LABS: ALB/GLOB RATIO 1.3 (1.0-2.1); ALBUMIN 3.4 g/dL (3.5-5.0); ALT/SGPT 19 U/L (9-52); AST/SGOT 29 U/L (14-36); BLOOD UREA NITROGEN 14 mg/dL (7-17); CALCIUM 8.6 mg/dl (8.6-10.4); GFR NON-AFRICAN AMERICAN > 60
[2018-09-25] MEDS: (Novolin R) Insulin Human Regular 100 units/ml vial SC SCH ×2 (08:26→12:22)
[2018-09-25] MEDS ORDERED: Dextrose 50% SYRINGE Inj (50 ml) IV PRN (09:24)
[2018-09-25] MEDS ORDERED: Glucagon Recombinant 1 mg Inj IM PRN (09:24)
--- NOTE | 2018-09-25 09:24 | CP.PCM.PN ---
Subjective - Date & Time of Evaluation Date of Evaluation: 09/25/18 Time of Evaluation: 07:00 - Subjective Subjective: Pt seen and examined at bedside this morning. Pt denies chest pain, SOB or bleeding from cath site. Objective - Vital Signs/Intake and Output Vital Signs (last 24 hours): Temp Pulse Resp BP Pulse Ox 97.8 F 68 20 136/67 97 09/25/18 07:00 09/25/18 07:45 09/25/18 07:00 09/25/18 07:00 09/25/18 07:00 Intake and Output: 09/25/18 09/25/18 06:59 18:59 Intake Total 400 Balance 400 - Medications Medications: Current Medications Aspirin (Aspirin Chewable) 81 mg PO DAILY [facility] Last Admin: 09/24/18 09:49 Dose: 81 mg Carvedilol (Coreg) 3.125 mg PO BID [facility] Last Admin: 09/24/18 19:57 Dose: Not Given Heparin Sodium/Sodium Chloride (Heparin 81601 Units/250ml 1/2 Normal Saline) 25,000 units in 250 mls @ 8.048 mls/hr IV .Q24H PRN; Protocol Last Admin: 09/24/18 03:05 Dose: 16 units/kg/hr, 8.048 mls/hr Sodium Chloride (Sodium Chloride 0.9%) 1,000 mls @ 100 mls/hr IV .Q10H [facility] Sodium Chloride (Sodium Chloride 0.9%) 1,000 mls @ 50 mls/hr IV .Q20H [facility] Last Admin: 09/24/18 22:11 Dose: 50 mls/hr Insulin Human Regular (Novolin R) 0 unit SC ACHS [facility]; Protocol Last Admin: 09/24/18 23:09 Dose: Not Given Lisinopril (Zestril) 2.5 mg PO DAILY [facility] Rosuvastatin Calcium (Crestor) 20 mg PO HS [facility] Last Admin: 09/24/18 22:11 Dose: 20 mg - Labs Labs: 09/25/18 07:34 09/25/18 07:34 PT 11.9 SECONDS (9.7-12.2) 09/22/18 14:19 INR 1.1 09/22/18 14:19 APTT 77 SECONDS (21-34) H D 09/24/18 08:04 - Constitutional Appears: No Acute Distress - Head Exam Head Exam: ATRAUMATIC, NORMOCEPHALIC - Eye Exam Eye Exam: EOMI - ENT Exam ENT Exam: Mucous Membranes Moist - Neck Exam Neck Exam: Full ROM - Respiratory Exam Respiratory Exam: Clear to Ausculation Bilateral, NORMAL BREATHING PATTERN. absent: Accessory Muscle Use - Cardiovascular Exam Cardiovascular Exam: RRR, +S1, +S2. absent: Diastolic murmur, Murmur - GI/Abdominal Exam GI & Abdominal Exam: Soft, Normal Bowel Sounds. absent: Tenderness - Extremities Exam Extremities Exam: Full ROM. absent: Calf Tenderness, Pedal Edema - Neurological Exam Neurological Exam: Alert, Awake, Oriented x3 - Psychiatric Exam Psychiatric exam: Normal Affect, Normal Mood - Skin Skin Exam: Dry, Normal Color, Warm Assessment and Plan - Assessment and Plan (Free Text) Assessment: Syncope NSTEMI Positive Troponins ACS Plan: Troponin (09/22/18) 0.8590, 0.7810, 1.0400 BNP 940, HA1C 6.9 ECHO 09/22/18 normal LV systolic dysfunction Stent placed LAD and Circ 09/24/18 Medications ASA Coreg Losartan Allison Tipton Pt seen, examined, assessment and plan discussed with Dr Guy Johnson PGY1, Internal Medicine Resident
[2018-09-25] MEDS: Magnesium Sulfate 1 gm in D5W 1 GM/100 ML BAG IVPB SCH ×4 (11:06→13:46)
[2018-09-25 15:50] VITALS: BP 123/63; TEMP 97.9
--- NOTE | 2018-09-25 16:25 | CP.PCM.DIS ---
<Cori Meehan - Last Filed: 09/25/18 16:59> Provider - Provider Date of Admission: 09/22/18 17:14 Attending physician: Baldev Dennison Consults: 09/22/18 17:10 Cardiology Consult Stat Comment: Consulting Provider: Cricket Tovar Consulting Physician: Cricket Tovar Reason for Consult: elevated troponon LBBB syncope Critical Care Consult Stat Comment: Consulting Provider: Jaciel Parker Consulting Physician: Jaciel Parker Reason for Consult: elevated troponin syncope hypomagnesemia Time Spent in preparation of Discharge (in minutes): 40 Hospital Course - Lab Results Lab Results: Micro Results 09/22/18 15:33 Blood Blood Culture - Preliminary NO GROWTH AFTER 3 DAYS 09/22/18 15:33 Blood Blood Culture - Preliminary NO GROWTH AFTER 3 DAYS 09/22/18 15:28 Urine Random Urine Culture - Final No Growth (<1,000 CFU/ML) Most Recent Lab Values WBC 6.6 K/uL (4.8-10.8) 09/25/18 07:34 RBC 3.78 Mil/uL (3.80-5.20) L 09/25/18 07:34 Hgb 10.5 g/dL (11.0-16.0) L 09/25/18 07:34 Hct 31.7 % (34.0-47.0) L 09/25/18 07:34 MCV 83.7 fL (81.0-99.0) 09/25/18 07:34 MCH 27.7 pg (27.0-31.0) 09/25/18 07:34 MCHC 33.0 g/dL (33.0-37.0) 09/25/18 07:34 RDW 14.4 % (11.5-14.5) 09/25/18 07:34 Plt Count 386 K/uL (130-400) 09/25/18 07:34 MPV 8.4 fL (7.2-11.7) 09/25/18 07:34 Neut % (Auto) 74.6 % (50.0-75.0) 09/25/18 07:34 Lymph % (Auto) 13.7 % (20.0-40.0) L 09/25/18 07:34 Lea % (Auto) 10.2 % (0.0-10.0) H 09/25/18 07:34 Eos % (Auto) 1.1 % (0.0-4.0) 09/25/18 07:34 Baso % (Auto) 0.4 % (0.0-2.0) 09/25/18 07:34 Neut # (Auto) 4.9 K/uL (1.8-7.0) 09/25/18 07:34 Lymph # (Auto) 0.9 K/uL (1.0-4.3) L 09/25/18 07:34 Lea # (Auto) 0.7 K/uL (0.0-0.8) 09/25/18 07:34 Eos # (Auto) 0.1 K/uL (0.0-0.7) 09/25/18 07:34 Baso # (Auto) 0.0 K/uL (0.0-0.2) 09/25/18 07:34 Neutrophils % (Manual) 85 % (50-75) H 09/22/18 14:19 Band Neutrophils % 4 % (0-2) H 09/22/18 14:19 Lymphocytes % (Manual) 5 % (20-40) L 09/22/18 14:19 Monocytes % (Manual) 6 % (0-10) 09/22/18 14:19 Platelet Estimate Slightly increased (NORMAL) H 09/22/18 14:19 RBC Morphology Normal 09/22/18 14:19 PT 11.9 SECONDS (9.7-12.2) 09/22/18 14:19 INR 1.1 09/22/18 14:19 APTT 77 SECONDS (21-34) H D 09/24/18 08:04 pO2 21 mm/Hg (30-55) L 09/22/18 14:24 VBG pH 7.33 (7.32-7.43) 09/22/18 14:24 VBG pCO2 50 mmHg (40-60) 09/22/18 14:24 VBG HCO3 22.9 mmol/L 09/22/18 14:24 VBG Total CO2 27.9 mmol/L (22-28) 09/22/18 14:24 VBG O2 Sat (Calc) 30.9 % (40-65) L 09/22/18 14:24 VBG Base Excess -0.2 mmol/L (0.0-2.0) L 09/22/18 14:24 VBG Potassium 4.5 mmol/L (3.6-5.2) 09/22/18 14:24 Sodium 137.0 mmol/l (132-148) 09/22/18 14:24 Chloride 99.0 mmol/L (98-107) 09/22/18 14:24 Glucose 243 mg/dl (65-105) H 09/22/18 14:24 Lactate 2.0 mmol/L (0.7-2.1) 09/22/18 14:24 Sodium 136 mmol/L (132-148) 09/25/18 07:34 Potassium 4.4 mmol/L (3.6-5.2) 09/25/18 07:34 Chloride 102 mmol/L (98-107) 09/25/18 07:34 Carbon Dioxide 28 mmol/L (22-30) 09/25/18 07:34 Anion Gap 10 (10-20) 09/25/18 07:34 BUN 14 mg/dL (7-17) 09/25/18 07:34 Creatinine 0.8 mg/dL (0.7-1.2) 09/25/18 07:34 Est GFR ( Amer) > 60 09/25/18 07:34 Est GFR (Non-Af Amer) > 60 09/25/18 07:34 POC Glucose (mg/dL) 248 mg/dL (65-110) H 09/25/18 16:06 Random Glucose 182 mg/dL (65-105) H D 09/25/18 07:34 Hemoglobin A1c 6.9 % (4.2-6.5) H 09/22/18 18:55 Calcium 8.6 mg/dl (8.6-10.4) 09/25/18 07:34 Phosphorus 3.5 mg/dL (2.5-4.5) 09/25/18 07:34 Magnesium 1.2 mg/dL (1.6-2.3) L 09/25/18 07:34 Total Bilirubin 0.3 mg/dL (0.2-1.3) 09/25/18 07:34 AST 29 U/L (14-36) 09/25/18 07:34 ALT 19 U/L (9-52) 09/25/18 07:34 Alkaline Phosphatase 82 U/L (38-126) 09/25/18 07:34 Troponin I 1.0400 ng/mL (0.00-0.120) H* 09/23/18 07:03 NT-Pro-B Natriuret Pep 940 pg/mL (0-900) H 09/22/18 15:55 Total Protein 5.9 g/dL (6.3-8.3) L 09/25/18 07:34 Albumin 3.4 g/dL (3.5-5.0) L 09/25/18 07:34 Globulin 2.6 gm/dL (2.2-3.9) 09/25/18 07:34 Albumin/Globulin Ratio 1.3 (1.0-2.1) 09/25/18 07:34 Triglycerides 90 mg/dL (0-149) 09/22/18 18:55 Cholesterol 133 mg/dL (0-199) 09/22/18 18:55 LDL Cholesterol Direct 82 mg/dL (0-129) 09/22/18 18:55 HDL Cholesterol 47 mg/dL (30-70) 09/22/18 18:55 Lipase 291 U/L (23-300) 09/22/18 14:19 Free T4 1.42 ng/dL (0.78-2.19) 09/23/18 07:03 TSH 3rd Generation 2.80 mIU/L (0.46-4.68) 09/23/18 07:03 Venous Blood Potassium 4.5 mmol/L (3.6-5.2) 09/22/18 14:24 Urine Color Yellow (YELLOW) 09/22/18 15:28 Urine Clarity Clear (Clear) 09/22/18 15:28 Urine pH 6.0 (5.0-8.0) 09/22/18 15:28 Ur Specific Maiden 1.015 (1.003-1.030) 09/22/18 15:28 Urine Protein Negative mg/dL (NEGATIVE) 09/22/18 15:28 Urine Glucose (UA) 250 mg/dL (Normal) 09/22/18 15:28 Urine Ketones 15 mg/dL (NEGATIVE) 09/22/18 15:28 Urine Blood Negative (NEGATIVE) 09/22/18 15:28 Urine Nitrate Negative (NEGATIVE) 09/22/18 15:28 Urine Bilirubin Negative (NEGATIVE) 09/22/18 15:28 Urine Urobilinogen 0.2 mg/dL (0.2-1.0) 09/22/18 15:28 Ur Leukocyte Esterase Negative Peter/uL (Negative) 09/22/18 15:28 Urine WBC (Auto) 5 /hpf (0-5) 09/22/18 15:28 Urine RBC (Auto) < 1 /hpf (0-3) 09/22/18 15:28 Ur Squamous Epith Cells 1 /hpf (0-5) 09/22/18 15:28 - Hospital Course Hospital Course: On admission: HPI: Patient is a 68 year old female with history of diabetes who presents for syncopal episode earlier today at 1pm. Daughter in law at bedside states that patient was sitting on the sofa when she fainted, sliding off and falling onto the floor. She lost consciousness for about 2 to 3 seconds after which she was noted to have clenched teeth and incontinent of urine. She immediately vomited once after her syncopal episode. She was reportedly in good health until today except for an 4 episodes of diarrhea 3 days ago. She is typically very active, walks without assistance. She has not had any recent falls. She denies fevers, chills, headache, dizziness, chest pain, palpitations, abdominal pain, nausea, leg swelling or pain. Hospital course: Patient was admitted for syncope and NSTEMI after she was found to have elevated troponins. [employer] Dr. Tovar was consulted. Cardiac catheterization revealed LAD mid segment 99% subtotal occlusion, distal Left circumflex 85% stenosis with codominant circulation and RCA 40% stenosis. Patient was treated with Aspirin, Coreg, Crestor, Lisinopril, Brilinta. ECHO was found to have normal LV systolic function. Patient underwent percutaneous coronary intervention of LAD and left circumflex with stenting on 09/24/18. For syncope, patient was placed on telemetry and had imaging which was negative. Upon discharge, patient was medically stable with no complaints of chest pain, back pain, or lower extremity pain. Instructions explained to patient's daughter in law over the telephone. Imaging: ECHO normal LV systolic function. Diastolic dysfunction. Trace MR. Mild MR. Normal chamber size CT angio: No large central or segmental pulmonary embolus evident.No focal consolidation. No pleural effusion. No pneumothorax. 7 mm right middle lobe pulmonary nodule. 4 mm right middle lobe subpleural pulmonary nodule. Correlate clinically and recommend [address] follow-up. 11 mm right lower pole hypodense thyroid nodule. Suggest further evaluation with ultrasound. CT head: no acute intracranial pathology CXR: negative Discharge instructions: Please follow up with your primary care doctor Dr. Magalie Case or you may follow up with [facility] by calling [phone] within 2 weeks. Please follow up with [facility] [employer] Dr. Tovar in his office within 1-2 weeks. Avoid heavy lifting, vigorous exercise until cleared by [facility] [employer]ist. Continue to take your medication for diabetes at home and bring your medication to your primary care doctor at your visit within the next 2 weeks. Prescriptions provided: Aspirin 81mg by mouth once daily Plavix 75mg by mouth once daily Coreg 3.125mg by mouth twice daily Losartan 25mg by mouth once daily Crestor 20mg by mouth once daily Discharge Exam - Head Exam Head Exam: ATRAUMATIC, NORMOCEPHALIC - Eye Exam Eye Exam: EOMI, PERRL - ENT Exam ENT Exam: Mucous Membranes Moist - Neck Exam Neck exam: Full Rom - Respiratory Exam Respiratory Exam: Clear to PA & Lateral, NORMAL BREATHING PATTERN. absent: Rales, Rhonchi, Wheezes, Respiratory Distress, Stridor - Cardiovascular Exam Cardiovascular Exam: REGULAR RHYTHM, +S1, +S2 Additional comments: (+) murmur - GI/Abdominal Exam GI & Abdominal Exam: Normal Bowel Sounds, Soft. absent: Tenderness - Extremities Exam Extremities exam: pedal pulses present Additional comments: Right groin - no evidence of hematoma, no bleeding. Good pedal pulses. - Neurological Exam Neurological exam: Alert, Oriented x3 - Psychiatric Exam Psychiatric exam: Normal Affect, Normal Mood - Skin Skin Exam: Dry, Intact, Warm Discharge Plan - Discharge Medications Prescriptions: RX: Aspirin [Aspirin Chewable] 81 mg PO DAILY #30 chew RX: Carvedilol [Coreg] 3.125 mg PO BID #30 tab Clopidogrel [Plavix] 75 mg PO DAILY #30 tab RX: Losartan [Cozaar] 25 mg PO DAILY #30 tab RX: Rosuvastatin Calcium [Crestor] 20 mg PO HS #30 tab - Follow Up Plan Condition: STABLE Disposition: HOME/ ROUTINE Instructions: Heart Healthy Diet, Heart Attack (DC), Heart Disease in Women (DC), Aspirin, Carvedilol, Clopidogrel, Losartan, Rosuvastatin Additional Instructions: Please follow up with your primary care doctor Dr. Magalie Case or you may follow up with [facility] by calling [phone] within 2 weeks. Please follow up with [facility] [employer] Dr. Tovar in his office within 1-2 weeks. Avoid hea vy lifting, vigorous exercise until cleared by [facility] [employer]ist. Continue to take your medication for diabetes at home and bring your medication to your primary care doctor at your visit within the next 2 weeks. Prescriptions provided: Aspirin 81mg by mouth once daily Plavix 75mg by mouth once daily Coreg 3.125mg by mouth twice daily Losartan 25mg by mouth once daily Crestor 20mg by mouth once daily Referrals: Cricket Tovar MD [Staff Provider] - Franklyn Case MD [Staff Provider] - <Baldev Dennison - Last Filed: 09/25/18 17:29> Provider - Provider Date of Admission: 09/22/18 17:14 Attending physician: Baldev Dennison Consults: 09/22/18 17:10 Cardiology Consult Stat Comment: Consulting Provider: Cricket Tovar Consulting Physician: Cricket Tovar Reason for Consult: elevated troponon LBBB syncope Critical Care Consult Stat Comment: Consulting Provider: Jaciel Parker Consulting Physician: Jaciel Parker Reason for Consult: elevated troponin syncope hypomagnesemia Hospital Course - Lab Results Lab Results: Micro Results 09/22/18 15:33 Blood Blood Culture - Preliminary NO GROWTH AFTER 3 DAYS 09/22/18 15:33 Blood Blood Culture - Preliminary NO GROWTH AFTER 3 DAYS 09/22/18 15:28 Urine Random Urine Culture - Final No Growth (<1,000 CFU/ML) Most Recent Lab Values WBC 6.6 K/uL (4.8-10.8) 09/25/18 07:34 RBC 3.78 Mil/uL (3.80-5.20) L 09/25/18 07:34 Hgb 10.5 g/dL (11.0-16.0) L 09/25/18 07:34 Hct 31.7 % (34.0-47.0) L 09/25/18 07:34 MCV 83.7 fL (81.0-99.0) 09/25/18 07:34 MCH 27.7 pg (27.0-31.0) 09/25/18 07:34 MCHC 33.0 g/dL (33.0-37.0) 09/25/18 07:34 RDW 14.4 % (11.5-14.5) 09/25/18 07:34 Plt Count 386 K/uL (130-400) 09/25/18 07:34 MPV 8.4 fL (7.2-11.7) 09/25/18 07:34 Neut % (Auto) 74.6 % (50.0-75.0) 09/25/18 07:34 Lymph % (Auto) 13.7 % (20.0-40.0) L 09/25/18 07:34 Lea % (Auto) 10.2 % (0.0-10.0) H 09/25/18 07:34 Eos % (Auto) 1.1 % (0.0-4.0) 09/25/18 07:34 Baso % (Auto) 0.4 % (0.0-2.0) 09/25/18 07:34 Neut # (Auto) 4.9 K/uL (1.8-7.0) 09/25/18 07:34 Lymph # (Auto) 0.9 K/uL (1.0-4.3) L 09/25/18 07:34 Lea # (Auto) 0.7 K/uL (0.0-0.8) 09/25/18 07:34 Eos # (Auto) 0.1 K/uL (0.0-0.7) 09/25/18 07:34 Baso # (Auto) 0.0 K/uL (0.0-0.2) 09/25/18 07:34 Neutrophils % (Manual) 85 % (50-75) H 09/22/18 14:19 Band Neutrophils % 4 % (0-2) H 09/22/18 14:19 Lymphocytes % (Manual) 5 % (20-40) L 09/22/18 14:19 Monocytes % (Manual) 6 % (0-10) 09/22/18 14:19 Platelet Estimate Slightly increased (NORMAL) H 09/22/18 14:19 RBC Morphology Normal 09/22/18 14:19 PT 11.9 SECONDS (9.7-12.2) 09/22/18 14: INR 1.1 09/22/18 14: APTT 77 SECONDS (21-34) H D 09/24/18 08:04 pO2 21 mm/Hg (30-55) L 09/22/18 14:24 VBG pH 7.33 (7.32-7.43) 09/22/18 14:24 VBG pCO2 50 mmHg (40-60) 09/22/18 14:24 VBG HCO3 22.9 mmol/L 09/22/18 14:24 VBG Total CO2 27.9 mmol/L (22-28) 09/22/18 14:24 VBG O2 Sat (Calc) 30.9 % (40-65) L 09/22/18 14:24 VBG Base Excess -0.2 mmol/L (0.0-2.0) L 09/22/18 14:24 VBG Potassium 4.5 mmol/L (3.6-5.2) 09/22/18 14:24 Sodium 137.0 mmol/l (132-148) 09/22/18 14:24 Chloride 99.0 mmol/L (98-107) 09/22/18 14:24 Glucose 243 mg/dl (65-105) H 09/22/18 14:24 Lactate 2.0 mmol/L (0.7-2.1) 09/22/18 14:24 Sodium 136 mmol/L (132-148) 09/25/18 07:34 Potassium 4.4 mmol/L (3.6-5.2) 09/25/18 07:34 Chloride 102 mmol/L (98-107) 09/25/18 07:34 Carbon Dioxide 28 mmol/L (22-30) 09/25/18 07:34 Anion Gap 10 (10-20) 09/25/18 07:34 BUN 14 mg/dL (7-17) 09/25/18 07:34 Creatinine 0.8 mg/dL (0.7-1.2) 09/25/18 07:34 Est GFR ( Amer) > 60 09/25/18 07:34 Est GFR (Non-Af Amer) > 60 09/25/18 07:34 POC Glucose (mg/dL) 248 mg/dL (65-110) H 09/25/18 16:06 Random Glucose 182 mg/dL (65-105) H D 09/25/18 07:34 Hemoglobin A1c 6.9 % (4.2-6.5) H 09/22/18 18:55 Calcium 8.6 mg/dl (8.6-10.4) 09/25/18 07:34 Phosphorus 3.5 mg/dL (2.5-4.5) 09/25/18 07:34 Magnesium 1.2 mg/dL (1.6-2.3) L 09/25/18 07:34 Total Bilirubin 0.3 mg/dL (0.2-1.3) 09/25/18 07:34 AST 29 U/L (14-36) 09/25/18 07:34 ALT 19 U/L (9-52) 09/25/18 07:34 Alkaline Phosphatase 82 U/L (38-126) 09/25/18 07:34 Troponin I 1.0400 ng/mL (0.00-0.120) H* 09/23/18 07:03 NT-Pro-B Natriuret Pep 940 pg/mL (0-900) H 09/22/18 15:55 Total Protein 5.9 g/dL (6.3-8.3) L 09/25/18 07:34 Albumin 3.4 g/dL (3.5-5.0) L 09/25/18 07:34 Globulin 2.6 gm/dL (2.2-3.9) 09/25/18 07:34 Albumin/Globulin Ratio 1.3 (1.0-2.1) 09/25/18 07:34 Triglycerides 90 mg/dL (0-149) 09/22/18 18:55 Cholesterol 133 mg/dL (0-199) 09/22/18 18:55 LDL Cholesterol Direct 82 mg/dL (0-129) 09/22/18 18:55 HDL Cholesterol 47 mg/dL (30-70) 09/22/18 18:55 Lipase 291 U/L (23-300) 09/22/18 14:19 Free T4 1.42 ng/dL (0.78-2.19) 09/23/18 07:03 TSH 3rd Generation 2.80 mIU/L (0.46-4.68) 09/23/18 07:03 Venous Blood Potassium 4.5 mmol/L (3.6-5.2) 09/22/18 14:24 Urine Color Yellow (YELLOW) 09/22/18 15:28 Urine Clarity Clear (Clear) 09/22/18 15:28 Urine pH 6.0 (5.0-8.0) 09/22/18 15:28 Ur Specific Maiden 1.015 (1.003-1.030) 09/22/18 15:28 Urine Protein Negative mg/dL (NEGATIVE) 09/22/18 15:28 Urine Glucose (UA) 250 mg/dL (Normal) 09/22/18 15:28 Urine Ketones 15 mg/dL (NEGATIVE) 09/22/18 15:28 Urine Blood Negative (NEGATIVE) 09/22/18 15:28 Urine Nitrate Negative (NEGATIVE) 09/22/18 15:28 Urine Bilirubin Negative (NEGATIVE) 09/22/18 15:28 Urine Urobilinogen 0.2 mg/dL (0.2-1.0) 09/22/18 15:28 Ur Leukocyte Esterase Negative Peter/uL (Negative) 09/22/18 15:28 Urine WBC (Auto) 5 /hpf (0-5) 09/22/18 15:28 Urine RBC (Auto) < 1 /hpf (0-3) 09/22/18 15:28 Ur Squamous Epith Cells 1 /hpf (0-5) 09/22/18 15:28 Attending/Attestation - Attestation I have personally seen and examined this patient.: Yes I have fully participated in the care of the patient.: Yes I have reviewed all pertinent clinical information, including history, physical exam and plan: Yes
[2018-09-25 16:30] VITALS: PULSE 82
--- NOTE | 2018-09-26 17:38 | CATH ---
Date of service: 09/23/2018 PROCEDURE: Fluoroscopic guidance during cardiac catheterization. HISTORY: R/O CAD COMPARISON: No prior similar study available for comparison. TECHNIQUE: Fluoroscopic guidance was provided during cardiac catheterization. FINDINGS: Please refer to the procedure report for more details. IMPRESSION: Only fluoroscopic guidance was provided.
== END 2018-09-25 17:03 | disposition home or self-care (01) | DRG 282 ==
LOC: C.ER 13:33 → C.9E 17:14 → C.5S 18:00
PROVIDERS: ADMIT Hospitalist; ATTEND Hospitalist
PROC: 4A023N7 Measurement of Cardiac Sampling and Pressure, Left Heart, Percutaneous Approach (ICD-10-PCS; principal; 2018-09-23)
PROC: B2151ZZ Fluoroscopy of Left Heart using Low Osmolar Contrast (ICD-10-PCS; 2018-09-23)
PROC: B2111ZZ Fluoroscopy of Multiple Coronary Arteries using Low Osmolar Contrast (ICD-10-PCS; 2018-09-23)
DX: I21.4 Non-ST elevation (NSTEMI) myocardial infarction (principal); I25.10 Atherosclerotic heart disease of native coronary artery without angina pectoris; R55 Syncope and collapse; E11.9 Type 2 diabetes mellitus without complications; E04.1 Nontoxic single thyroid nodule; E78.00 Pure hypercholesterolemia, unspecified; E83.42 Hypomagnesemia